=== PATIENT | female | born 1965 | race Caucasian/White ===

== ENCOUNTER 2017-12-25 12:50 | Emergency (ER) | payer MEDICAID ==
[~2017-12-25] VITALS: Ht 170.2 cm; Wt 86.4 kg
[~2017-12-25 12:50] MED LIST: ALBU6.7H INH; AZIT250T PO; CEPH-571 PO; DIAZ10TA PO; FLUT16SP10 NAS; GENOO OP; GUAI120015 PO; HYDR-4383 PO; IBUP-1984 PO; NAPR-996 PO; NO HOME MEDS
[2017-12-25 13:01] VITALS: BP 140/95
[2017-12-25] MEDS ORDERED: ibuprofen tablet 400 MG TABLET PO ONE (14:25)
== END 2017-12-25 15:13 | disposition home or self-care (01) ==
LOC: ER 12:50
DX: S63.8X2A Sprain of other part of left wrist and hand, initial encounter (principal); Z98.51 Tubal ligation status; Z98.890 Other specified postprocedural states; Z79.899 Other long term (current) drug therapy; W19.XXXA Unspecified fall, initial encounter; Y93.89 Activity, other specified; Y92.89 Other specified places as the place of occurrence of the external cause; Y99.9 Unspecified external cause status
CPT/HCPCS: 29125; 73130; 99284

== ENCOUNTER 2018-01-11 10:42 | Emergency (ER) | payer MEDICAID ==
[~2018-01-11] VITALS: Ht 170.2 cm; Wt 71.2 kg
[2018-01-11 10:51] VITALS: BP 149/85
== END 2018-01-11 11:33 | disposition home or self-care (01) ==
LOC: ER 10:42
DX: S01.01XD Laceration without foreign body of scalp, subsequent encounter (principal); Z48.02 Encounter for removal of sutures; Z79.899 Other long term (current) drug therapy; Z98.51 Tubal ligation status; Z98.890 Other specified postprocedural states; Z87.19 Personal history of other diseases of the digestive system; X58.XXXD Exposure to other specified factors, subsequent encounter
CPT/HCPCS: 99284

== ENCOUNTER 2019-05-06 04:11 | Emergency (ER) | payer MEDICAID, OTHER ==
[~2019-05-06] VITALS: Ht 170.2 cm; Wt 84.2 kg
[~2019-05-06 04:11] MED LIST changes: -ALBU6.7H INH; +ALBU6.7H9 INH
[2019-05-06] MEDS ORDERED: ipratropium/albuterol 3ml nebule NEB ONE (04:40)
[2019-05-06] MEDS ORDERED: azithromycin 250mg tablet PO ONE (04:40)
[2019-05-06] MEDS ORDERED: predniSONE 20 mg tablet PO ONE (04:40)
[2019-05-06] MEDS ORDERED: AZIT-63 PO (04:41)
[2019-05-06] MEDS ORDERED: PRED20TA PO (04:44)
[2019-05-06] MEDS ORDERED: ALBU8.5H8 INH (04:44)
[2019-05-06] MEDS ORDERED: LISI2.5T89 PO (04:48)
[2019-05-06] MEDS ORDERED: CARV3.122 PO (04:48)
[2019-05-06 05:32] VITALS: BP 172/64
== END 2019-05-06 05:36 | disposition home or self-care (01) ==
LOC: ER 04:13
DX: J44.1 Chronic obstructive pulmonary disease with (acute) exacerbation (principal); Z86.19 Personal history of other infectious and parasitic diseases; Z87.59 Personal history of other complications of pregnancy, childbirth and the puerperium; Z98.51 Tubal ligation status; Z79.2 Long term (current) use of antibiotics; Z79.899 Other long term (current) drug therapy
CPT/HCPCS: 94640; 99283; J7512; 94760

== ENCOUNTER 2019-08-13 09:14 | Emergency (ER) | payer MEDICAID, OTHER ==
[~2019-08-13] VITALS: Ht 170.2 cm; Wt 72.7 kg
[~2019-08-13 09:14] MED LIST changes: +ALBU8.5H8 INH; +CARV3.122 PO; +LISI2.5T89 PO
[2019-08-13 09:59] LABS: BASOPHILS % (AUTO) 0.5 % (0-1); EOSINOPHILS # (AUTO) 0.2 X10'3 (0-0.9); EOSINOPHILS % (AUTO) 2.4 % (0-6); HEMATOCRIT 40.2 % (35.0-45.0); MEAN CORPUSCULAR HEMOGLOBIN 28.8 PG (27.0-31.0); MEAN CORPUSCULAR HGB CONC 32.4 g/dL (33.0-36.5); MEAN CORPUSCULAR VOLUME 88.9 FL (78-98); MEAN PLATELET VOLUME 8.5 FL (7.4-10.4); MONOCYTES # (AUTO) 0.6 X10'3 (0-0.9); MONOCYTES % (AUTO) 8.2 % (2-12); NEUTROPHILS # (AUTO) 4.9 X10'3 (1.8-7.7); NEUTROPHILS % (AUTO) 62.9 % (42-75); PLATELET COUNT 182 X10'3 (140-440); RED BLOOD COUNT 4.52 X10'6 (4.20-5.60); RED CELL DISTRIBUTION WIDTH 15.3 % (11.5-14.5); WHITE BLOOD COUNT 7.8 X10'3 (4.5-11.0)
[2019-08-13 10:02] LABS: GLUCOSE 111 MG/DL (70-104)
[2019-08-13 10:06] LABS: ALANINE AMINOTRANSFERASE 25 U/L (12-78); ALBUMIN 3.3 G/DL (3.4-5.0); ALKALINE PHOSPHATASE 83 IU/L (46-116); ANION GAP 6 (8-16); ASPARTATE AMINO TRANSFERASE 23 U/L (10-37); BILIRUBIN,TOTAL 0.6 MG/DL (0.1-1.0); BLOOD UREA NITROGEN 6 MG/DL (7-18); BUN/CREATININE RATIO 7.8 (6.6-38.0); CALCIUM 8.6 MG/DL (8.5-10.1); CHLORIDE 104 MMOL/L (99-107); CREATININE 0.77 MG/DL (0.40-0.90); POTASSIUM 3.9 MMOL/L (3.5-5.1); SODIUM 138 MMOL/L (135-145); TOTAL CARBON DIOXIDE 28.2 MMOL/L (24-32); TOTAL PROTEIN 6.7 G/DL (6.4-8.2); eGFR 79 ML/MIN
[2019-08-13 10:40] VITALS: BP 156/107
== END 2019-08-13 15:30 | disposition left against medical advice (07) ==
LOC: ER 09:15
DX: I11.0 Hypertensive heart disease with heart failure (principal); I50.22 Chronic systolic (congestive) heart failure; F15.20 Other stimulant dependence, uncomplicated; F17.200 Nicotine dependence, unspecified, uncomplicated; Z91.14 Patient's other noncompliance with medication regimen; Z59.0 Homelessness; Z98.51 Tubal ligation status; Z98.890 Other specified postprocedural states; Z86.19 Personal history of other infectious and parasitic diseases; Z79.899 Other long term (current) drug therapy
CPT/HCPCS: 36415; 71045; 80053; 83880; 84484; 85025; 93005; 99285

== ENCOUNTER 2021-05-03 15:44 | Emergency (ER) | payer MEDICAID ==
[~2021-05-03] VITALS: Ht 167.6 cm; Wt 81.3 kg
[~2021-05-03 15:44] MED LIST changes: +ALBU8.5H17 INH; -ALBU8.5H8 INH
[2021-05-03 15:59] VITALS: BP 111/66
--- NOTE | 2021-05-03 17:56 | NUR ---
PT eloped 1730.
== END 2021-05-03 17:58 | disposition left against medical advice (07) ==
LOC: ER 15:45
DX: S09.90XA Unspecified injury of head, initial encounter (principal); Z53.21 Procedure and treatment not carried out due to patient leaving prior to being seen by health care provider; X58.XXXA Exposure to other specified factors, initial encounter; Y93.89 Activity, other specified; Y92.89 Other specified places as the place of occurrence of the external cause; Y99.8 Other external cause status

== ENCOUNTER 2022-01-12 03:40 | Inpatient (IN) | payer MEDICAID ==
[~2022-01-12] VITALS: Ht 167.6 cm; Wt 74.6 kg
[~2022-01-12 03:40] MED LIST changes: +ALBU6.7H14 INH; -ALBU6.7H9 INH
[2022-01-12 04:30] VITALS: BP 121/72
[2022-01-12 04:37] LABS: BASOPHILS % (AUTO) 0.6 % (0-1); EOSINOPHILS # (AUTO) 0.2 X10'3 (0-0.9); EOSINOPHILS % (AUTO) 2.8 % (0-6); HEMATOCRIT 37.5 % (35.0-45.0); HEMOGLOBIN 12.5 g/dl (12.0-16.0); LYMPHOCYTES # (AUTO) 1.7 X10'3 (1.1-4.8); LYMPHOCYTES % (AUTO) 28.9 % (21-51); MEAN CORPUSCULAR HGB CONC 33.3 g/dL (33.0-36.5); MEAN CORPUSCULAR VOLUME 89.9 FL (78-98); MEAN PLATELET VOLUME 8.7 FL (7.4-10.4); MONOCYTES # (AUTO) 0.5 X10'3 (0-0.9); MONOCYTES % (AUTO) 8.4 % (2-12); NEUTROPHILS # (AUTO) 3.5 X10'3 (1.8-7.7); NEUTROPHILS % (AUTO) 59.3 % (42-75); PLATELET COUNT 168 X10'3 (140-440); RED BLOOD COUNT 4.17 X10'6 (4.20-5.60); RED CELL DISTRIBUTION WIDTH 13.4 % (11.5-14.5)
[2022-01-12 04:39] LABS: ALANINE AMINOTRANSFERASE 32 U/L (12-78); ALBUMIN/GLOBULIN RATIO 0.9 (1.1-1.5); ALKALINE PHOSPHATASE 103 IU/L (46-116); ANION GAP 5 (8-16); ASPARTATE AMINO TRANSFERASE 24 U/L (10-37); BILIRUBIN,TOTAL 0.4 MG/DL (0.1-1.0); BLOOD UREA NITROGEN 16 MG/DL (7-18); BUN/CREATININE RATIO 22.5 (6.6-38.0); CALCIUM 8.9 MG/DL (8.5-10.1); CHLORIDE 106 MMOL/L (99-107); CREATININE 0.71 MG/DL (0.40-0.90); GLUCOSE 111 MG/DL (70-104); POTASSIUM 4.3 MMOL/L (3.5-5.1); SODIUM 139 MMOL/L (135-145); TOTAL CARBON DIOXIDE 28.2 MMOL/L (24-32); TOTAL PROTEIN 6.2 G/DL (6.4-8.2); eGFR 86 ML/MIN
[2022-01-12] MEDS ORDERED: nitroGLYCERIN 0.4mg/hour patch TD ONE (08:50)
[2022-01-12] MEDS ORDERED: carvedilol 6.25mg tablet PO SCH (08:50)
[2022-01-12] MEDS ORDERED: enoxaparin 100mg/ml syringe SUBCUT ONE (08:50)
[2022-01-12] MEDS ORDERED: aspirin 81mg tab.chew PO ONE (08:50)
[2022-01-12 09:24] LABS: ETHANOL < 0.010 GM/DL (0.0-0.010); MAGNESIUM 1.9 MG/DL (1.5-2.4)
[2022-01-12] MEDS ORDERED: morphine 2 MG/ML inj. syringe IV PRN ×2 (09:45)
[2022-01-12] MEDS ORDERED: ondansetron/PF 4mg/2ml inj IV PRN (09:45)
[2022-01-12] MEDS ORDERED: HYDROcodone/acetaminophen 5mg/325mg tablet PO PRN (09:45)
[2022-01-12] MEDS ORDERED: acetaminophen 325mg tablet PO PRN (09:45)
[2022-01-12] MEDS ORDERED: magnesium hydroxide 30ml (MOM) UD suspension PO PRN (09:45)
[2022-01-12] MEDS ORDERED: mag hydrox/Alum hydrox/simeth 30ml oral suspension PO PRN (09:45)
[2022-01-12 10:07] LABS: URINE AMPHETAMINE SCREEN POSITIVE (Neg); URINE BARBITUATE SCREEN NEGATIVE (Neg); URINE BENZODIAZEPINES SCREEN NEGATIVE (Neg); URINE CANNABINOID SCREEN NEGATIVE (Neg); URINE COCAINE SCREEN NEGATIVE (Neg); URINE METHADONE SCREEN NEGATIVE (Neg); URINE OPIATE SCREEN NEGATIVE (Neg); URINE PHENCYCLIDINE SCREEN NEGATIVE (Neg)
[2022-01-12] MEDS: lisinopril 10 MG tablet PO SCH (10:15)
[2022-01-12] MEDS ORDERED: furosemide 10 MG/1 ML 10ml inj IV STA (11:06)
[2022-01-12] MEDS ORDERED: POTA-82 PO (11:14)
[2022-01-12] MEDS ORDERED: CARV3.12 PO (11:19)
[2022-01-12] MEDS ORDERED: FURO-150 PO (11:19)
[2022-01-12] MEDS ORDERED: ALBU18HF2 INH (11:28)
[2022-01-12 12:05] LABS: APTT 28 SECONDS (22-32)
[2022-01-12] MEDS ORDERED: LISI2.5T14 PO (13:19)
--- NOTE | 2022-01-12 16:24 | NUR ---
Patient in room ED 4. I have received report from Jose KATZ from ER and had the opportunity to ask questions and assume patient care.
[2022-01-12 18:00] VITALS: BP 121/72
--- NOTE | 2022-01-12 18:00 | NUR ---
Cared for patient when she arrived on the unit. Patient is kind but tearful at times. States that she is concerned about her son. I encouraged her to take care of herself and get better so she can be there for her son. Patient was very thankful.
--- NOTE | 2022-01-12 18:49 | NUR ---
Problems reprioritized. Patient report given, questions answered & plan of care reviewed with Lorne KATZ.
[2022-01-12] MEDS: acetaminophen 325mg tablet PO PRN (19:31)
[2022-01-12] MEDS: furosemide 40mg/4ml inj IV SCH (19:35)
[2022-01-12] MEDS: docusate sod 100mg capsule PO SCH (19:35)
[2022-01-12] MEDS: carvedilol 6.25mg tablet PO SCH (19:35)
[2022-01-12 22:00] VITALS: BP 130/82
[2022-01-13 02:00] VITALS: BP 130/74
--- NOTE | 2022-01-13 04:18 | NUR ---
Pt complaint of SOB, SaO2 98 % RA, P 85, current does not have anti-anxiety meds order, deep RABAGO MD and got an order: Ativan 0.5 mg PO Q6H PRN for anxiety and SOB.
[2022-01-13] MEDS ORDERED: LORazepam 0.5 MG tablet PO PRN (04:25)
[2022-01-13] MEDS: HYDROcodone/acetaminophen 10/325mg tab PO PRN ×2 (05:34→23:27)
[2022-01-13 06:00] VITALS: BP 130/80
--- NOTE | 2022-01-13 06:10 | NUR ---
Patient in room PCU 3013. I have received report from Lorena KATZ and had the opportunity to ask questions and assume patient care.
[2022-01-13 06:35] LABS: BASOPHILS % (AUTO) 0.7 % (0-1); EOSINOPHILS # (AUTO) 0.2 X10'3 (0-0.9); EOSINOPHILS % (AUTO) 2.4 % (0-6); HEMOGLOBIN 12.6 g/dl (12.0-16.0); LYMPHOCYTES # (AUTO) 1.1 X10'3 (1.1-4.8); LYMPHOCYTES % (AUTO) 17.5 % (21-51); MEAN CORPUSCULAR HEMOGLOBIN 29.8 PG (27.0-31.0); MEAN CORPUSCULAR HGB CONC 33.3 g/dL (33.0-36.5); MEAN CORPUSCULAR VOLUME 89.6 FL (78-98); MONOCYTES # (AUTO) 0.6 X10'3 (0-0.9); MONOCYTES % (AUTO) 9.1 % (2-12); NEUTROPHILS # (AUTO) 4.5 X10'3 (1.8-7.7); NEUTROPHILS % (AUTO) 70.3 % (42-75); PLATELET COUNT 167 X10'3 (140-440); RED BLOOD COUNT 4.24 X10'6 (4.20-5.60); RED CELL DISTRIBUTION WIDTH 12.9 % (11.5-14.5); WHITE BLOOD COUNT 6.5 X10'3 (4.5-11.0)
[2022-01-13 06:54] LABS: ALBUMIN 2.9 G/DL (3.4-5.0); ANION GAP 6 (8-16); BLOOD UREA NITROGEN 14 MG/DL (7-18); BUN/CREATININE RATIO 20.3 (6.6-38.0); CALCIUM 8.5 MG/DL (8.5-10.1); CHLORIDE 104 MMOL/L (99-107); CHOL/HDL RATIO 2.7 (0.00-4.99); CHOLESTEROL 158 MG/DL (0-200); CREATININE 0.69 MG/DL (0.40-0.90); GLUCOSE 106 MG/DL (70-104); HDL CHOLESTEROL 58 MG/DL (35-60); LDL CHOLESTEROL 84 MG/DL (50-100); SODIUM 138 MMOL/L (135-145); TOTAL CARBON DIOXIDE 28.4 MMOL/L (24-32); TRIGLYCERIDES 73 MG/DL (20-135); eGFR 89 ML/MIN
[2022-01-13] MEDS: carvedilol 6.25mg tablet PO SCH ×2 (07:48→20:16)
[2022-01-13] MEDS: lisinopril 10 MG tablet PO SCH (07:48)
[2022-01-13] MEDS: docusate sod 100mg capsule PO SCH ×2 (07:49→20:16)
[2022-01-13] MEDS: furosemide 40mg/4ml inj IV SCH ×2 (08:11→20:16)
--- NOTE | 2022-01-13 13:48 | NUR ---
AGREE WITH ANALYST GEOCHEMICAL PROSPECTING CHARTING
[2022-01-13 13:58] VITALS: BP 116/76
[2022-01-13] MEDS ORDERED: nicotine 21mg patch - 24 hr TD SCH (15:00)
[2022-01-13] MEDS: acetaminophen 325mg tablet PO PRN (17:54)
[2022-01-13 18:00] VITALS: BP 124/62
--- NOTE | 2022-01-13 18:13 | NUR ---
cared for patient today. Patient is a pleasant lady. Patient was given a warm wash cloth to wash face, patient also took a shower today.
--- NOTE | 2022-01-13 18:14 | NUR ---
Problems reprioritized. Patient report given, questions answered & plan of care reviewed with Lorne KATZ.
[2022-01-13 22:00] VITALS: BP 121/76
[2022-01-14 02:00] VITALS: BP 115/69
[2022-01-14 06:00] VITALS: BP 123/73
--- NOTE | 2022-01-14 06:47 | NUR ---
Patient in room PCU 3013. I have received report from Lorne and had the opportunity to ask questions and assume patient care.
[2022-01-14] MEDS: furosemide 40mg/4ml inj IV SCH (08:00)
[2022-01-14] MEDS ORDERED: LISI10TA27 PO (08:44)
[2022-01-14] MEDS ORDERED: FURO40TA4 PO (08:44)
[2022-01-14] MEDS ORDERED: CARV6.253 PO (08:44)
[2022-01-14 09:24] LABS: BASOPHILS % (AUTO) 0.6 % (0-1); EOSINOPHILS # (AUTO) 0.1 X10'3 (0-0.9); EOSINOPHILS % (AUTO) 2.3 % (0-6); HEMATOCRIT 42.7 % (35.0-45.0); HEMOGLOBIN 14.4 g/dl (12.0-16.0); LYMPHOCYTES # (AUTO) 1.5 X10'3 (1.1-4.8); LYMPHOCYTES % (AUTO) 25.1 % (21-51); MEAN CORPUSCULAR HEMOGLOBIN 30.1 PG (27.0-31.0); MEAN CORPUSCULAR HGB CONC 33.8 g/dL (33.0-36.5); MEAN PLATELET VOLUME 8.8 FL (7.4-10.4); MONOCYTES # (AUTO) 0.5 X10'3 (0-0.9); MONOCYTES % (AUTO) 8.2 % (2-12); NEUTROPHILS # (AUTO) 3.7 X10'3 (1.8-7.7); NEUTROPHILS % (AUTO) 63.8 % (42-75); PLATELET COUNT 197 X10'3 (140-440); RED CELL DISTRIBUTION WIDTH 13.4 % (11.5-14.5); WHITE BLOOD COUNT 5.8 X10'3 (4.5-11.0)
[2022-01-14] MEDS: carvedilol 6.25mg tablet PO SCH (09:36)
[2022-01-14 09:38] LABS: ALBUMIN 3.1 G/DL (3.4-5.0); ANION GAP 7 (8-16); BLOOD UREA NITROGEN 19 MG/DL (7-18); BUN/CREATININE RATIO 25.7 (6.6-38.0); CALCIUM 9.2 MG/DL (8.5-10.1); CHLORIDE 101 MMOL/L (99-107); CREATININE 0.74 MG/DL (0.40-0.90); GLUCOSE 120 MG/DL (70-104); POTASSIUM 4.2 MMOL/L (3.5-5.1); SODIUM 139 MMOL/L (135-145); TOTAL CARBON DIOXIDE 31.1 MMOL/L (24-32); eGFR 82 ML/MIN
[2022-01-14 09:39] VITALS: BP_SYST 123
[2022-01-14] MEDS: docusate sod 100mg capsule PO SCH (09:39)
[2022-01-14] MEDS: lisinopril 10 MG tablet PO SCH (09:39)
--- NOTE | 2022-01-14 10:50 | NUR ---
Discharge orders were reviewed with pt. Pt verbalized understanding. Pt is A & O x 4. Pt expressed a readiness to discharge home. Pt was able to dress herself and was wheeled downstairs to be driven home by family/friend.
== END 2022-01-14 10:50 | disposition home or self-care (01) | DRG 194 ==
LOC: ER 03:40 → ED HOLD 09:50 → EDBEDREQ 15:06 → PCU 3S 16:43
PROVIDERS: ADMIT Internal Medicine; ATTEND Internal Medicine
DX: I11.0 Hypertensive heart disease with heart failure (principal); I21.4 Non-ST elevation (NSTEMI) myocardial infarction; I50.23 Acute on chronic systolic (congestive) heart failure; F15.10 Other stimulant abuse, uncomplicated; B19.20 Unspecified viral hepatitis C without hepatic coma; F17.210 Nicotine dependence, cigarettes, uncomplicated; Z79.899 Other long term (current) drug therapy; Z98.891 History of uterine scar from previous surgery; Z98.51 Tubal ligation status; Z71.6 Tobacco abuse counseling; Z71.51 Drug abuse counseling and surveillance of drug abuser
CPT/HCPCS: 36415; 71045; 80048; 80053; 80061; 80305; 80320; 83735; 83880; 84443; 84484; 85025; 85610; 85730; 87081; 93005; 93306; 99285; G0378; J1650; J1940; J2405

== ENCOUNTER → 2024-03-01 | Outpatient (CLI) | payer MEDICAID ==
[~2024-03-01] MED LIST changes: +ALBU18HF2 INH; -ALBU6.7H14 INH; -ALBU8.5H17 INH; -AZIT250T PO; -CARV3.122 PO; +CARV6.253 PO; -CEPH-571 PO; -DIAZ10TA PO; -FLUT16SP10 NAS; +FURO40TA4 PO; -GENOO OP; -GUAI120015 PO; -HYDR-4383 PO; -IBUP-1984 PO; +LISI10TA27 PO; -LISI2.5T89 PO; -NAPR-996 PO; -NO HOME MEDS; +POTA-366 PO
== END | disposition home or self-care (01) ==
LOC: CARD DIAG 15:31
PROVIDERS: ATTEND Family Medicine
DX: I08.0 Rheumatic disorders of both mitral and aortic valves (principal); I50.22 Chronic systolic (congestive) heart failure
CPT/HCPCS: 93306

== ENCOUNTER 2024-07-02 15:50 | Inpatient (IN) | payer MEDICAID ==
[~2024-07-02] VITALS: Ht 167.6 cm; Wt 98.3 kg
--- NOTE | 2024-07-02 16:02 | ELECTROCARDIOGRAPH REPORT ---
[facility] Test Date: 2024-07-02 Test Time: 16:01:04 Pat Name: MOSES RUBALCAVA Department: [facility]-ER Patient ID: [facility]-[id number] Room: ED 3 Gender: F Auto Service Advisor: : 1965 Requested By: CHANELLE LANCE Order Number: [id number] Reading MD: Dr. Chai Emerson Measurements Intervals [place] Rate: 114 P: 48 ME: 168 QRS: -3 QRSD: 100 T: 92 QT: 338 QTc: 466 Interpretive Statements Sinus tachycardia Probable left atrial enlargement LVH with secondary repolarization abnormality Electronically Signed On 07-02-2024 18:39:[address] Chai Emerson Please click the below link to view image of tracing.
[2024-07-02 16:22] LABS: BASOPHILS % (AUTO) 0.7 % (0-1); EOSINOPHILS # (AUTO) 0.6 X10'3 (0-0.9); EOSINOPHILS % (AUTO) 9.2 % (0-6); HEMATOCRIT 39.4 % (35.0-45.0); HEMOGLOBIN 13.2 g/dl (12.0-16.0); LYMPHOCYTES % (AUTO) 31.9 % (21-51); MEAN CORPUSCULAR HEMOGLOBIN 28.7 PG (27.0-31.0); MEAN CORPUSCULAR HGB CONC 33.5 g/dL (33.0-36.5); MEAN CORPUSCULAR VOLUME 85.9 FL (78-98); MEAN PLATELET VOLUME 8.2 FL (7.4-10.4); MONOCYTES # (AUTO) 0.6 X10'3 (0-0.9); NEUTROPHILS # (AUTO) 3.1 X10'3 (1.8-7.7); NEUTROPHILS % (AUTO) 49.2 % (42-75); PLATELET COUNT 195 X10'3 (140-440); RED BLOOD COUNT 4.59 X10'6 (4.20-5.60); RED CELL DISTRIBUTION WIDTH 13.1 % (11.5-14.5); WHITE BLOOD COUNT 6.3 X10'3 (4.5-11.0)
--- NOTE | 2024-07-02 16:22 | RADIOLOGY REPORT ---
CHEST RADIOGRAPH Indication: CP Technique: Single frontal view of the chest was obtained Comparison: CHEST,SINGLE VIEW on DOS: 01/12/22, CHEST,SINGLE VIEW on DOS: 08/13/19 FINDINGS: Lines and Tubes: None Lungs: No focal consolidation. Pleura: No effusion. No pneumothorax. Cardiomediastinal contours: Unremarkable Bones: No acute osseous abnormality. IMPRESSION: 1. No acute cardiopulmonary disease.
[2024-07-02 16:39] LABS: ALANINE AMINOTRANSFERASE 21 U/L (12-78); ALBUMIN 3.5 G/DL (3.4-5.0); ALKALINE PHOSPHATASE 98 IU/L (46-116); ANION GAP 6 (8-16); ASPARTATE AMINO TRANSFERASE 14 U/L (10-37); BILIRUBIN,TOTAL 0.4 MG/DL (0.1-1.0); BLOOD UREA NITROGEN 17 MG/DL (7-18); BUN/CREATININE RATIO 26.6 (10.0-20.0); CALCIUM 8.8 MG/DL (8.5-10.1); CHLORIDE 106 MMOL/L (99-107); CREATININE 0.64 MG/DL (0.40-0.90); GLUCOSE 109 MG/DL (70-104); POTASSIUM 3.8 MMOL/L (3.5-5.1); SODIUM 141 MMOL/L (135-145); TOTAL CARBON DIOXIDE 29.2 MMOL/L (24-32); TOTAL PROTEIN 7.1 G/DL (6.4-8.2); eCRCL 92 ML/MIN; eGFR > 90 ML/MIN
[2024-07-02 16:46] LABS: PRO BRAIN NATRIURETIC PEPTIDE 351 PG/ML (0-125)
--- NOTE | 2024-07-02 17:11 | Physician Documentation ---
History of Present Illness ~ Chief Complaint: Shortness of Breath Stated Complaint: DIFFICULTY BREATHING Time Seen by MD: 16:46 OK to notify your PCP?: Yes [facility] Mode of Arrival: Ambulatory HPI 58 years old female patient who is homeless FOR five years duration and also history of smoking and history of meth usage (last use was yesterday) with a history of congestive heart failure with reduced systolic function (ejection fraction about 35%) came to the emergency room for progressive shortness a breath for the last three weeks. She has been to the [facility] and she was treated for COPD exacerbation and discharged. Her medication compliance is sporadic. She is still smoking. The patient does not have angina like pain but she does have pleuritic chest pain particularly upon coughing. Medication Reconciliation Allergies: Coded Allergies: No Known Allergies (Unverified , 07/02/24) Scheduled Atorvastatin Calcium (Atorvastatin Calcium), 1 TAB PO DAILY, (Reported) Carvedilol (Coreg), 1 TAB PO Q12H, (Reported) Lisinopril (Lisinopril), 1 TAB PO DAILY, (Reported) Spironolactone (Spironolactone), 1 TAB PO DAILY, (Reported) Scheduled PRN Albuterol Sulfate (Ventolin Hfa), 1 PUFFS INH every 4 to 6 hours PRN for SOB or wheezing, (Reported) Discontinued Medications Carvedilol (Carvedilol), 6.25 MG PO BID Discontinued Reason: patient no longer taking Furosemide (Furosemide), 1 TABLET PO BID Discontinued Reason: patient no longer taking Lisinopril (Lisinopril), 10 MG PO DAILY Discontinued Reason: patient no longer taking Potassium Chloride (Potassium Chloride), 1 TAB PO BID, (Reported) Discontinued Reason: patient no longer taking Past Medical History Past Medical History: Congestive Heart Failure, Hypertension, Hepatitis C Past Surgical History: , tubal ligation Alcohol Use: None Drug Use: methamphetamine Lives with: Family Lives In: Home Occupation: employed Review of Systems ROS As stated above in the HPI, otherwise all systems are reviewed and negative. Physical Exam Vital Signs: Temperature: 98.3, Heart Rate: 115, Respiratory Rate: 18, BP: 159/109, Pulse Oximetry: 97, Weight: 100.000 Physical Exam Reviewed vital signs and they are well within normal range except for tachycardia. Const: In [id number] respiratory distress Head: Atraumatic Eyes: Normal Conjunctiva ENT: Normal External Ears, Nose and Mouth. Moist mucous membranes Neck: Full range of motion. No meningismus Resp: Diminished breath sounds and expiratory wheezes bilaterally. [id number] increased work of breathing Cardio: Regular rate and rhythm, no murmurs. Skin well perfused, heart rate is 1 one two per minute Abd: Soft, non-tender, non-distended. Normal bowel sounds. No rebound or guarding Skin: No petechiae or rashes. Warm and dry Back: No midline or flank tenderness Ext: No cyanosis, trace pedal edema Neuro: Awake and alert Psych: Normal Mood and Affect Procedures Additional Procedures Procedure Note Twelve lead EKG done at 16:01 hours shows sinus tachycardia at a rate of 114. Left axis deviation. Left atrial enlargement. LVH by voltage criteria. Normal intervals. No acute ischemic changes. Progress Results/Orders Results/Orders Orders - CHANELLE LANCE MD Chest,Single View (07/02/24 16:06) Monitor (07/02/24 15:57) Saline Lock (07/02/24 15:57) Oxygen (07/02/24 15:57) Electrocardiogram (07/02/24 15:57) Svn Treatment (07/02/24 17:04) Page Hospitalist (07/02/24 17:12) Completed Orders - CHANELLE LANCE MD Chest,Single View (07/02/24 16:06) Cbc/Diff (07/02/24 15:57) PBNP (07/02/24 15:57) Electrocardiogram (07/02/24 15:57) CMP (07/02/24 15:57) Hs Troponin I W Calculations (07/02/24 15:57) Ipratropium/Albuterol Nebule (Ipratrop/A (07/02/24 17:05) Vital Signs 07/02/24 07/02/24 07/02/24 07/02/24 15:54 17:22 17:25 17:27 Temp 98.3 Pulse 115 107 114 107 Resp 18 19 22 20 B/P (MAP) 159/109 159/103 (121) Pulse Ox 97 98 98 97 O2 Delivery Room Air* Room Air* O2 Flow Rate 0 0 0 FiO2 21 21 Laboratory Tests Test 07/02/24 16:04 07/02/24 16:05 D-Dimer 0.56 H D-Dimer Comment White Blood Count 6.3 Red Blood Count 4.59 Hemoglobin 13.2 Hematocrit 39.4 Mean Corpuscular Volume 85.9 Mean Corpuscular Hemoglobin 28.7 Mean Corpuscular Hemoglobin Concent 33.5 Red Cell Distribution Width 13.1 Platelet Count 195 Mean Platelet Volume 8.2 Neutrophils (%) (Auto) 49.2 Lymphocytes (%) (Auto) 31.9 Monocytes (%) (Auto) 9.0 Eosinophils (%) (Auto) 9.2 H Basophils (%) (Auto) 0.7 Neutrophils # (Auto) 3.1 Lymphocytes # (Auto) 2.0 Monocytes # (Auto) 0.6 Eosinophils # (Auto) 0.6 Basophils # (Auto) 0.0 CBC Comment Sodium Level 141 Potassium Level 3.8 Chloride Level 106 Carbon Dioxide Level 29.2 Anion Gap 6 L Blood Urea Nitrogen 17 Creatinine 0.64 Estimated GFR/1.73 m2 > 90 BUN/Creatinine Ratio 26.6 H Glucose Level 109 H Calcium Level 8.8 Total Bilirubin 0.4 Aspartate Amino Transf (AST/SGOT) 14 Alanine Aminotransferase (ALT/SGPT) 21 Alkaline Phosphatase 98 Troponin I High Sensitivity 97 *H Pro-B-Type Natriuretic Peptide 351 H Total Protein 7.1 Albumin 3.5 Globulin 3.6 Albumin/Globulin Ratio 1.0 L Procalcitonin < 0.05 Chemistry Comments Medical Decision Making Findings During the physical examination, the findings suggestive of acute life- threatening condition such as JVD, tracheal deviation, acidotic breathing, noisy stridorous breath sounds, pulses paradoxus, muffled heart sounds, unequal breath sounds, abdominal rigidity and rebound tenderness, focal neurological deficits, cool clammy skin, severe hypotension, severe tachycardia or bradycardia are absent. Patient has shortness a breath and it probably could be a combination of COPD exacerbation and CHF together with meth usage. Her CBC showed WBC 6.3 and H and H13.2 and 39.4 and platelets 195. Sodium 141 potassium 3.8 chloride 106 bicarb 29.2 BUN 17 creatinine 0.64. Pro BNP is 351 and troponin is 97. In her historical labs troponin 97 is probably the lowest. Radiology reported that chest x-ray does not reveal any acute process. When I look at the chest x-ray I think she may have some prominent vascular marking. PATIENT WILL BE ADMITTED FOR ACUTE EXACERBATION OF CHF/COPD. DISCLAIMER INADVERTENT SPELLING AND GRAMMATICAL ERRORS,INADVERTENT CUSTOMER OPERATIONS MANAGER ERRORS,SYNTAX ERRORS, GRAMMATICAL ERRORS, AND SPELLING ERRORS ARE LIKELY DUE TO EMR/DICTATION SOFTWARE USE AND DO NOT REFLECT ON THE OVERALL QUALITY OF PATIENT CARE. NOTE THAT THE ELECTRONIC TIME RECORDED ON THIS NOTE DOES NOT NECESSARILY REFLECT THE ACTUAL TIME OF THE PATIENT ENCOUNTER. Departure Disposition: 09 ADMITTED INPATIENT Impression: Primary Impression: Acute exacerbation of chronic obstructive airways disease Additional Impression: Acute on chronic systolic heart failure Referrals: NO PRIMARY CARE PROVIDER (PCP) Signature Scribe Signature: x Attestation: CHANELLE Frankel MD July 02, 2024 17:11
[2024-07-02] MEDS: ipratropium/albuterol 3ml nebule NEB ONE (17:18)
[2024-07-02 17:22] VITALS: PULSE 107; RESP 19; O2SAT 98
[2024-07-02 17:27] VITALS: PULSE 107; RESP 20; O2SAT 97
[2024-07-02] MEDS ORDERED: potassium Cl 40MEQ/1/2NS 520ml 520 ML IV PRN (17:30)
[2024-07-02] MEDS ORDERED: HYDROcodone/acetaminophen 5mg/325mg tablet PO PRN (17:30)
[2024-07-02] MEDS ORDERED: acetaminophen 325mg tablet PO PRN ×2 (17:30)
[2024-07-02] MEDS ORDERED: magnesium sulf-water 2g/50mL 50 ML IV PRN (17:30)
[2024-07-02] MEDS ORDERED: mag hydrox/Alum hydrox/simeth 30ml oral suspension PO PRN (17:30)
[2024-07-02] MEDS ORDERED: potassium Cl 20 mEq SR tablet PO PRN (17:30)
[2024-07-02] MEDS ORDERED: magnesium sulf-water 4G/100mL 100 ML IV PRN (17:30)
[2024-07-02] MEDS ORDERED: HYDROcodone/acetaminophen 10/325mg tab PO PRN (17:30)
[2024-07-02] MEDS ORDERED: ondansetron/PF 4mg/2ml inj IV PRN (17:30)
[2024-07-02] MEDS ORDERED: magnesium hydroxide 30ml (MOM) UD suspension PO PRN (17:30)
[2024-07-02] MEDS ORDERED: iohexol 350MG/ML 100ml bottle IV ONE (17:35)
[2024-07-02] MEDS ORDERED: hydrALAZINE 20mg/ml inj. IV PRN (17:35)
[2024-07-02] MEDS: EMPAGLIFLOZIN 10 MG TABLET PO ONE (17:40)
[2024-07-02 17:50] LABS: D-DIMER 0.56 MG/L FEU (0-0.50)
--- NOTE | 2024-07-02 18:14 | RADIOLOGY REPORT ---
INDICATION: sob, tachycardia COMPARISON: None TECHNIQUE: Multidetector CTA of the chest was performed of the chest with 100 cc of intravenous contr ast. PULMONARY ANGIOGRAPHY PROTOCOL was utilized using a bolus-tracking technique centered on the mita n pulmonary artery. Axial, coronal and sagittal multiplanar and MIP reformats were performed. Radiation Dose Information: CT Dose: CTDI volume is 38.34 mGy. Dose-length product is 901.91 mGy*cm The dose indicators for CT are the volume Computed Tomography (CT) Dose Index (CTDIvol) and the Dose Length Product (DLP), and are measured in units of mGy and mGy-cm, respectively. These indicators are not patient dose, but values generated from the CT scanner acquisition factors. The report includes radiation exposure data for exposures received during this examination. Findings: Pulmonary artery: Normal caliber of the pulmonary artery. No large central or large segmental pulmo nary embolism. Lower neck: Normal thyroid. Lungs: No focal consolidation, pulmonary mass, or suspicious pulmonary nodule. Heart/Vascular Structures: Normal heart size. Normal caliber and enhancement of the aorta. Lymph Nodes: No adenopathy Pleura: No pleural effusion or significant pneumothorax. Musculoskeletal: No acute osseous abnormality. Upper abdomen: Limited portions of the upper abdomen are unremarkable. IMPRESSION: 1. No pulmonary embolism. 2. No pulmonary artery hypertension. 3. No pulmonary airspace disease or pleural effusions.
--- NOTE | 2024-07-02 18:32 | HISTORY AND PHYSICAL ---
History & Physical Providers to CC ~ History of Present Illness Reason for Admit\Complaint: SIRS, infective bronchitis, type II MS, acute copd exacerbation History of Present Illness Alisson Harmon is a 58-year-old female with a past medical history of systolic heart failure, methamphetamine abuse, methamphetamine-induced cardiomyopathy, medication noncompliance, chronic tobacco abuse, COPD who presented to the ED with chief complaint of progressively worsening shortness of breaths with associated symptoms of productive cough, pleuritic chest pain, intermittent fever and chills x 3 weeks. Patient denies prior MS/CAD, CVA, cardiac arrhythmia, DVT/PE, or GIB. Patient denies palpitations, abdominal pain, n/v/d. Patient is to be admitted for further workups and treatment. Allergies: Coded Allergies: No Known Allergies (Unverified , 07/02/24) Home Medications Home Medications Active Furosemide 40 Mg Tablet 1 Tablet PO BID Lisinopril 10 Mg Tablet 10 Mg PO DAILY Carvedilol 6.25 Mg Tablet 6.25 Mg PO BID Reported Ventolin Hfa (Albuterol Sulfate) 18 Gm Hfa.aer.ad 1 Puffs INH EVERY 4 TO 6 HOURS PRN Potassium Chloride 20 Meq Tablet.er 1 Tab PO BID Past Medical History Past Medical History COPD Systolic heart failure Methamphetamine abuse Hyperlipidemia Hypertension Tobacco abuse Past Surgical History Surgical History Comment Tubal ligation Past Social History Social History Comment Alcohol: Denies Tobacco: Current smoker, 15 pack year history Illicit drug use: Methamphetamine abuse, 40 years Living situation: Homelessness ROS ROS Other than positives in HPI, all 14 review of systems are negative Exam Vitals: Vital Signs Date Time Temp Pulse Resp B/P (MAP) Pulse Ox O2 Delivery O2 Flow Rate FiO2 07/02/24 18:16 106 17 155/95 (115) 97 0 07/02/24 17:27 Room Air* 21 07/02/24 15:54 98.3 General: Generalized weakness, A&Ox 3, NAD HEENT: Normocephalic, PERRLA Neck: Supple, trachea midline, no JVD Chest: Diminished b/l lung sounds Cardiovascular: RRR, S1&S2 Abdomen: Soft and nontender Extremities: Mild edema b/l lower extremities Central Nervous System: CN II-XII intact, no focal deficits Musculoskeletal: No paraspinal muscle tenderness, no muscle spasm Skin: Scattered scabbed wounds in b/l lower extremities Diagnostic Data Last Recorded Lab Results: 07/02/24 1605 07/02/24 1605 Diagnostic Data: Laboratory Tests Test 07/02/24 16:04 D-Dimer 0.56 MG/L FEU (0-0.50) H D-Dimer Comment Additional Plan # Suspected infective bronchitis, 3 weeks # Acute COPD exacerbation # SIRS # Type II MS 04/04 SIRS -CXR, UA, CTA chest negative -start empirical abx given comorbidities, IVF, supportive care, follow respiratory culture # Acute decompensated systolic heart failure, LVEF 35-40% (03/01/24) # Methamphetamine-induced cardiomyopathy # Methamphetamine abuse # Hypertension -EKG sinus tachycardia at 114bpm, no ischemic changes, elevated d-dimer; CTA negative PE unremarkable, CXR negative, downtrending troponins; UDS positive amphetamine -GDMT including metoprolol tart -follow TTE, venous US b/l LE # Tobacco abuse # Nicotine dependence -nicotine patch, prn bronchodilator # Class II obesity # HLD -follow lipid panel, pending med rec DVT/VTE Prophylaxis: heparin Code Status: DNR/DNI I spent a total of 35 minutes discussing Advanced Care Planning measures with the patient. Advance care planning: Discussed with patient the importance of advance care planning in case of emergent situation. We discussed various resuscitative measures/ ACP with the patient at the time of admission. Patient voiced understanding and patient has decided on DNR/DNI status. Date of Service: July 02, 2024 Billing Provider: AISHA DHAILWAL Common Visit Codes: 32461-[id number] INP/OBS CARE (HIGH) Secondary Visit Codes: [id number] CARE PLAN 30 MINUTES AISHA DHALIWAL July 02, 2024 18:32
[2024-07-02] MEDS ORDERED: metoprolol tartrate 1mg/ml inj IV PRN (18:40)
[2024-07-02] MEDS: CefTRIAXone/D5W-Rocephin 1gm 50 ML IV ONE (19:22)
[2024-07-02] MEDS: azithromycin/NS 500mg/250ml 250 ML IV ONE (19:25)
[2024-07-02] MEDS: nicotine 14mg patch - 24hr TD ONE (19:26)
[2024-07-02] MEDS: metoprolol tartrate 1mg/ml inj IV ONE (19:27)
[2024-07-02] MEDS: losartan 25mg tablet PO ONE (19:42)
[2024-07-02] MEDS: docusate sod 100mg capsule PO SCH (19:58)
[2024-07-02] MEDS: K and/or MAG REPLACEMENT MC SCH (19:59)
[2024-07-02] MEDS: furosemide 20 MG/2 ML vial IV SCH (20:01)
[2024-07-02 20:16] LABS: BILIRUBIN,URINE NEGATIVE (Neg); CLARITY,URINE CLEAR (Clear); COLOR,URINE YELLOW (Yellow); GLUCOSE, URINE NEGATIVE (Neg); KETONES,URINE NEGATIVE (Neg); LEUKOCYTE ESTERASE ,URINE NEGATIVE (Neg); NITRITES, URINE NEGATIVE (Neg); OCCULT BLOOD,URINE NEGATIVE (Neg); PH,URINE 5.5 (4.8-8.0); PROTEIN,URINE NEGATIVE (Neg); UROBILINOGEN,URINE 0.2 E.U/dL (0.2-1.0)
[2024-07-02 20:24] LABS: UA COLLECTION TYPE CLN CATCH MIDSTREAM
[2024-07-02 20:35] LABS: URINE AMPHETAMINE SCREEN POSITIVE (Neg); URINE BARBITUATE SCREEN NEGATIVE (Neg); URINE BENZODIAZEPINES SCREEN NEGATIVE (Neg); URINE CANNABINOID SCREEN NEGATIVE (Neg); URINE COCAINE SCREEN NEGATIVE (Neg); URINE METHADONE SCREEN NEGATIVE (Neg); URINE OPIATE SCREEN NEGATIVE (Neg); URINE PHENCYCLIDINE SCREEN NEGATIVE (Neg)
[2024-07-02] MEDS ORDERED: normal saline 1000ml 1,000 ML IV SCH (21:05)
[2024-07-02] MEDS: benzonatate 100mg capsule PO ONE (21:53)
[2024-07-02] MEDS: normal saline 1000ml 1,000 ML IV SCH (21:54)
[2024-07-02] MEDS ORDERED: SPIR25TA5 PO (22:39)
[2024-07-02] MEDS ORDERED: ATOR10TA70 PO (22:40)
[2024-07-02] MEDS ORDERED: CARV-49 PO (22:40)
[2024-07-02] MEDS ORDERED: LISI20TA28 PO (22:40)
[2024-07-02 23:15] VITALS: BP 149/61; PULSE 89; RESP 18; TEMP 97.5; O2SAT 97
[2024-07-03] VITALS (13 sets, daily range): BP systolic 121–145; BP diastolic 70–92; PULSE 77–118; RESP 17–27; TEMP 97.1–98.5; O2SAT 91–98
[2024-07-03] MEDS: heparin, porcine 5000 units/ml vial SQ SCH (01:26)
[2024-07-03] MEDS: diphenhydrAMINE 25mg capsule PO ONE (01:30)
[2024-07-03] MEDS: ipratropium/albuterol 3ml nebule NEB PRN (01:48)
[2024-07-03 06:58] LABS: BASOPHILS % (AUTO) 0.7 % (0-1); EOSINOPHILS # (AUTO) 0.4 X10'3 (0-0.9); EOSINOPHILS % (AUTO) 7.7 % (0-6); HEMATOCRIT 36.5 % (35.0-45.0); HEMOGLOBIN 12.4 g/dl (12.0-16.0); LYMPHOCYTES # (AUTO) 1.9 X10'3 (1.1-4.8); LYMPHOCYTES % (AUTO) 33.6 % (21-51); MEAN CORPUSCULAR HEMOGLOBIN 29.1 PG (27.0-31.0); MEAN CORPUSCULAR VOLUME 85.6 FL (78-98); MEAN PLATELET VOLUME 8.3 FL (7.4-10.4); MONOCYTES # (AUTO) 0.5 X10'3 (0-0.9); MONOCYTES % (AUTO) 8.1 % (2-12); NEUTROPHILS # (AUTO) 2.8 X10'3 (1.8-7.7); NEUTROPHILS % (AUTO) 49.9 % (42-75); PLATELET COUNT 172 X10'3 (140-440); RED BLOOD COUNT 4.26 X10'6 (4.20-5.60); RED CELL DISTRIBUTION WIDTH 13.3 % (11.5-14.5); WHITE BLOOD COUNT 5.7 X10'3 (4.5-11.0)
[2024-07-03 07:11] LABS: ALANINE AMINOTRANSFERASE 20 U/L (12-78); ALBUMIN 3.1 G/DL (3.4-5.0); ALBUMIN/GLOBULIN RATIO 0.9 (1.1-1.5); ALKALINE PHOSPHATASE 79 IU/L (46-116); ANION GAP 4 (8-16); ASPARTATE AMINO TRANSFERASE 16 U/L (10-37); BILIRUBIN,TOTAL 0.4 MG/DL (0.1-1.0); BLOOD UREA NITROGEN 14 MG/DL (7-18); BUN/CREATININE RATIO 24.1 (10.0-20.0); CALCIUM 8.3 MG/DL (8.5-10.1); CHLORIDE 110 MMOL/L (99-107); CHOL/HDL RATIO 2.2 (0.00-4.99); CHOLESTEROL 161 MG/DL (0-200); CREATININE 0.58 MG/DL (0.40-0.90); GLUCOSE 90 MG/DL (70-104); HDL CHOLESTEROL 72 MG/DL (35-60); LDL CHOLESTEROL 75 MG/DL (50-100); MAGNESIUM 2.1 MG/DL (1.5-2.4); POTASSIUM 3.4 MMOL/L (3.5-5.1); SODIUM 142 MMOL/L (135-145); TOTAL CARBON DIOXIDE 27.8 MMOL/L (24-32); TOTAL PROTEIN 6.4 G/DL (6.4-8.2); TRIGLYCERIDES 46 MG/DL (20-135); eCRCL 101 ML/MIN; eGFR > 90 ML/MIN
[2024-07-03] MEDS: EMPAGLIFLOZIN 10 MG TABLET PO SCH (07:47)
[2024-07-03] MEDS: losartan 25mg tablet PO SCH (07:48)
[2024-07-03] MEDS: metoprolol tartrate 25mg tablet PO SCH (07:48)
[2024-07-03] MEDS: CefTRIAXone/D5W-Rocephin 1gm 50 ML IV SCH (07:50)
[2024-07-03] MEDS: nicotine 14mg patch - 24hr TD SCH (07:50)
[2024-07-03] MEDS ORDERED: metoprolol succinate 25mg (24-HOUR) SR. Tablet PO SCH (08:00)
[2024-07-03] MEDS: ipratropium/albuterol 3ml nebule NEB SCH (09:10)
[2024-07-03] MEDS ORDERED: methylPREDNISolone sod succ 125mg/2ml vial IV ONE (09:10)
[2024-07-03] MEDS: azithromycin/NS 500mg/250ml 250 ML IV SCH (09:16)
[2024-07-03] MEDS: potassium Cl 20 mEq SR tablet PO PRN (09:16)
[2024-07-03] MEDS: methylPREDNISolone sod succ/PF 40mg inj. IV ONE (09:27)
--- NOTE | 2024-07-03 10:44 | VASCULAR REPORT ---
CLINICAL HISTORY: Bilateral leg swelling TECHNIQUE: Color and duplex doppler imaging of the bilateral lower extremity veins was performed. Ves latoya compression if possible was also performed. WID: COMPARISON: None FINDINGS: Right Lower Extremity: Right common femoral vein: Normal compressibility and flow. Right femoral vein: Normal compressibility and flow. Right popliteal vein: Normal compressibility and flow. Proximal calf veins are normally compressible. Left Lower Extremity: Left common femoral vein: Normal compressibility and flow. Left femoral vein: Normal compressibility and flow. Left popliteal vein: Normal compressibility and flow. Proximal calf veins are normally compressible. IMPRESSION: NO SONOGRAPHIC EVIDENCE FOR DEEP VENOUS THROMBOSIS IN THE BILATERAL LOWER EXTREMITY VEINS.
--- NOTE | 2024-07-03 12:05 | PROGRESS NOTE ---
Daily Progress Note Providers to CC ~ Antibiotic Timeout Antibiotic Ordered?: Yes Subjective No acute events overnight. Patient examined at bedside. No new complaints, not in acute distress. Patient denies chest pain, palpitations, abdominal pain, n/v/d. Vss, labs unremarkable. Physical exam notable for severe expiratory wheezing, started on steroid, scheduled bronchodilator. Objective Vital Signs Date Time Temp Pulse Resp B/P (MAP) Pulse Ox O2 Delivery O2 Flow Rate FiO2 07/03/24 07:48 88 07/03/24 06:00 97.6 22 141/92 (108) 93 Room Air 07/03/24 01:58 0.0 07/03/24 01:49 21 Result Diagram: 07/03/24 0611 07/03/24 0611 Physical Exam General: Generalized weakness, A&Ox 3, NAD HEENT: Normocephalic, PERRLA Neck: Supple, trachea midline, no JVD Chest: Expiratory wheezing b/l lungs Cardiovascular: RRR, S1&S2 GI: Soft and nontender Extremities: No cyanosis/clubbing/or edema ENAMEL PULVERIZER: CN II-XII intact, no focal deficits Musculoskeletal: No paraspinal muscle tenderness, no muscle spasm Skin: Warm and intact Coagulation Studies Laboratory Tests Test 07/02/24 16:04 D-Dimer 0.56 MG/L FEU (0-0.50) H D-Dimer Comment Problem\Assessment\Plan # Suspected infective bronchitis, 3 weeks # Acute COPD exacerbation # SIRS # Type II IL 2/2 SIRS -CXR, UA, CTA chest negative -start empirical abx given comorbidities, IVF, supportive care, follow respiratory culture -steroid, bronchodilator # Acute decompensated systolic heart failure, LVEF 35-40% (03/01/24) # Methamphetamine-induced cardiomyopathy # Methamphetamine abuse # Hypertension -EKG sinus tachycardia at 114bpm, no ischemic changes, elevated d-dimer; CTA negative PE unremarkable, CXR negative, downtrending troponins; UDS positive amphetamine -GDMT including metoprolol tart -follow TTE, venous US b/l LE -07/03: venous US BLE negative, follow TTE # Tobacco abuse # Nicotine dependence -nicotine patch # Class II obesity # HLD -follow lipid panel, pending med rec DVT/VTE Prophylaxis: heparin Code Status: DNR/DNI Date of Service: July 03, 2024 Billing Provider: AISHA DHALIWAL Common Visit Codes: [id number] INP/OBS CARE(HIGH) AISHA DHALIWAL July 03, 2024 12:05
[2024-07-03] MEDS: methylPREDNISolone sod succ/PF 40mg inj. IV SCH (19:52)
[2024-07-04 02:00] VITALS: BP 118/61; PULSE 89; RESP 18; TEMP 98.2; O2SAT 94
[2024-07-04 06:00] VITALS: BP 150/88; PULSE 88; RESP 16; TEMP 98.7; O2SAT 96
[2024-07-04 06:37] LABS: BASOPHILS % (AUTO) 0.2 % (0-1); EOSINOPHILS % (AUTO) 0 % (0-6); LYMPHOCYTES # (AUTO) 0.8 X10'3 (1.1-4.8); LYMPHOCYTES % (AUTO) 9.1 % (21-51); MEAN CORPUSCULAR HEMOGLOBIN 29.4 PG (27.0-31.0); MEAN CORPUSCULAR HGB CONC 34.3 g/dL (33.0-36.5); MEAN CORPUSCULAR VOLUME 85.7 FL (78-98); MEAN PLATELET VOLUME 8.6 FL (7.4-10.4); MONOCYTES # (AUTO) 0.3 X10'3 (0-0.9); MONOCYTES % (AUTO) 3.9 % (2-12); NEUTROPHILS # (AUTO) 7.9 X10'3 (1.8-7.7); NEUTROPHILS % (AUTO) 86.8 % (42-75); PLATELET COUNT 194 X10'3 (140-440); RED BLOOD COUNT 4.44 X10'6 (4.20-5.60); RED CELL DISTRIBUTION WIDTH 13.5 % (11.5-14.5); WHITE BLOOD COUNT 9.1 X10'3 (4.5-11.0)
[2024-07-04 06:56] LABS: ALANINE AMINOTRANSFERASE 19 U/L (12-78); ALBUMIN 3.1 G/DL (3.4-5.0); ALBUMIN/GLOBULIN RATIO 0.9 (1.1-1.5); ALKALINE PHOSPHATASE 85 IU/L (46-116); ANION GAP 8 (8-16); ASPARTATE AMINO TRANSFERASE 13 U/L (10-37); BILIRUBIN,TOTAL 0.2 MG/DL (0.1-1.0); BLOOD UREA NITROGEN 13 MG/DL (7-18); CALCIUM 8.5 MG/DL (8.5-10.1); CHLORIDE 108 MMOL/L (99-107); CREATININE 0.62 MG/DL (0.40-0.90); GLUCOSE 139 MG/DL (70-104); MAGNESIUM 2.2 MG/DL (1.5-2.4); POTASSIUM 4.1 MMOL/L (3.5-5.1); SODIUM 141 MMOL/L (135-145); TOTAL CARBON DIOXIDE 25.1 MMOL/L (24-32); TOTAL PROTEIN 6.7 G/DL (6.4-8.2); eCRCL 95 ML/MIN; eGFR > 90 ML/MIN
[2024-07-04 08:00] VITALS: RESP 18; O2SAT 96
[2024-07-04] MEDS: metoprolol tartrate 25mg tablet PO SCH (08:11)
[2024-07-04 08:43] VITALS: PULSE 92; RESP 16; O2SAT 95
[2024-07-04 08:52] VITALS: PULSE 84; RESP 20
[2024-07-04] MEDS ORDERED: AMOX-117 PO (09:19)
[2024-07-04] MEDS ORDERED: EMPA10TA PO ×2 (09:19→11:34)
[2024-07-04] MEDS ORDERED: FLUT1DIS4 INH ×2 (09:19→11:34)
[2024-07-04] MEDS ORDERED: LOP25T PO ×2 (09:19→11:34)
[2024-07-04] MEDS ORDERED: LOSA25TA41 PO ×3 (09:19→11:34)
[2024-07-04] MEDS ORDERED: PRED10TA23 PO ×2 (09:19→11:34)
--- NOTE | 2024-07-04 09:54 | CARDIOLOGY REPORT ---
APPROVED REPORT EXAM: Comprehensive 2D, Doppler, and color-flow Echocardiogram. 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 165.5 cm/s AoV VTI 29.1 cm AO Peak GR. 11.0 mmHg AO Mean GR. 6 mmHg LVOT VTI 27.13 cm LVOT Peak Toni. 122.6 cm/s SHARLENE(VTI)/BSA 3.52 cm2/m2 SHARLENE (VTI) 3.52 cm2 Mitral Valve MV E Velocity 47.7 cm/s MV Peak Gr. 8 mmHg MV DECEL TIME 120 ms MV A Velocity 108.5 cm/s MV Mean Gr. 2 mmHg E/A Ratio 0.4 MV VVzx592.1 cm/sMV VMean66.7 cm/s MVA VTI3.85 cm2MV VTI26.7 cm TDI Medial E' P. V 7.41 cm/s E/Medial E' 6.4 Tricuspid Valve TR P. Velocity 191 cm/s RAP ESTIMATE 10 mmHg TR Peak Gr. 15 mmHg RVSP 25 mmHg Pulmonary Vein S1 Velocity 40.6 cm/s D2 Velocity 49.2 cm/s PVa Rxwvqkhe64.9 cm/s PVa [id number] msec LEFT VENTRICLE The LV is dilated in size with moderately reduced function. Mild concentric hypertrophy. Overall LVEF appears to be 35-40%. RIGHT VENTRICLE Right ventricle is moderately dilated with reduce function. Estimated PA systolic pressure is 25 mmHg . ATRIA Left atrium is moderately dilated. Right atrium is mildly dilated. AORTIC VALVE Trileaflet AV appears sclerotic without stenosis. Trace insufficiency. MITRAL VALVE Mild MV annular calcification without stenosis. Moderate regurgitation. TRICUSPID VALVE TV appears structurally normal with trace regurgitation. PULMONIC VALVE Normal PV without stenosis, physiologic insufficiency. GREAT VESSELS The aortic root is normal in size. IVC is normal in size and collapses less than 50% with inspiration . PERICARDIUM Normal pericardium. No pericardial effusion seen. Other Information Study Quality: Fair Conclusion The LV is dilated in size with moderately reduced function. Mild concentric hypertrophy. Overall LV EF appears to be 35-40%. Right ventricle is moderately dilated with reduce function. Estimated PA systolic pressure is 25 mmHg . Left atrium is moderately dilated. Right atrium is mildly dilated. Trileaflet AV appears sclerotic without stenosis. Trace insufficiency. Mild MV annular calcification without stenosis. Moderate regurgitation. TV appears structurally normal with trace regurgitation. Normal pericardium. No pericardial effusion seen.
[2024-07-04 11:00] VITALS: BP 136/84; PULSE 81; RESP 24; TEMP 98.5; O2SAT 96
[2024-07-04] MEDS ORDERED: METO50TA16 PO (11:34)
[2024-07-04] MEDS ORDERED: ALBU18HF2 INH (11:34)
[2024-07-04] MEDS ORDERED: AMOX-419 PO (11:34)
--- NOTE | 2024-07-04 11:50 | DISCHARGE SUMMARY ---
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 Hypertension Hypokalemia Tobacco abuse Nicotine dependence Class II obesity HLD Operations\Procedures: None Consultants: None Complications: None Condition on DC: Stable New Medications: Albuterol Sulfate (Ventolin Hfa) 90 Mcg Hfa.aer.ad 2 PUFFS INH Q4HPRN PRN for SOB or wheezing for 30 Days, #18 GM 0 Refills Amoxicillin/Potassium Clav (Augmentin 500-125 Tablet) 500 Mg-125 Mg Tablet 1 TAB PO Q8H for 5 Days, #15 TAB Empagliflozin (Jardiance) 10 Mg Tablet 1 TAB PO DAILY for 30 Days, #30 TAB 0 Refills Fluticasone/Salmeterol (Advair 250-50 Diskus) 1 Each Disk.w.dev 1 PUFFS INH Q12H for 30 Days, #1 EA 0 Refills Losartan Potassium (Losartan Potassium) 25 Mg Tablet 1 TAB PO DAILY for 30 Days, #30 TAB 0 Refills Metoprolol Tartrate (Metoprolol Tartrate) 50 Mg Tablet 1 TAB PO Q12H for 30 Days, #60 TAB Prednisone (Prednisone) 10 Mg Tablet 0 PO DAILY, #42 TAB Take 4 tabs daily x4 days, then 3 daily x4 days 2 daily x4 days 1 daily x4 days 1/2 daily x4 days then STOP Losartan Potassium (Losartan Potassium) 25 Mg Tablet 25 MG PO DAILY for 30 Days, #30 TAB Metoprolol Tartrate* (Lopressor tablet*) 25 Mg Tablet 50 MG PO Q12H for 30 Days, #60 TAB Hold for SBP below 100mm Hg Hold for Heart Rate below 60. Continued Medications: Albuterol Sulfate (Ventolin Hfa) 18 Gm Hfa.aer.ad 1 PUFFS INH every 4 to 6 hours PRN for SOB or wheezing Atorvastatin Calcium (Atorvastatin Calcium) 10 Mg Tablet 1 TAB PO DAILY for 30 Days, #30 TAB 0 Refills Spironolactone (Spironolactone) 25 Mg Tablet 1 TAB PO DAILY for 30 Days, #30 TAB 0 Refills Discontinued Medications: Carvedilol (Coreg) 6.25 Mg Tablet 1 TAB PO Q12H for 30 Days, #60 TAB Lisinopril (Lisinopril) 20 Mg Tablet 1 TAB PO DAILY for 30 Days, #30 TAB Discharge Summary: History of Present Illness Alisson Harmon is a 58-year-old female with a past medical history of systolic heart failure, methamphetamine abuse, methamphetamine-induced cardiomyopathy, medication noncompliance, chronic tobacco abuse, COPD who presented to the ED with chief complaint of progressively worsening shortness of breath with associated symptoms of persistent productive cough, pleuritic chest pain with excessive coughing, intermittent fever and chills x 3 weeks. Patient denies prior LA/CAD, CVA, cardiac arrhythmia, DVT/PE, or GIB. Patient denies palpitations, abdominal pain, n/v/d. Patient is to be admitted for further workups and treatment. Hospital Course Diagnostic findings were notable for hypoxia requiring supplemental oxygen, slightly elevated but downtrending troponin series, sinus tachycardia, tachypnea, elevated D-dimer with negative venous ultrasound of bilateral lower extremities and CTA chest negative for pulmonary embolism, physical exam si gnificant for severe expiratory wheezing in bilateral lobes of lungs. TTE showed systolic dysfunction with LVEF of 35-40% with moderate mitral regurgitation. Pertinent negative findings were pBNP at 300s, negative chest x-ray, negative CTA chest, no leukocytosis, afebrile, normal lactic acid, negative procal. Patient was treated with empirical antibiotics, steroid, bronchodilators, GDMT for heart failure. With treatment, reported pleuritic chest pain resolved completely and work of breathing improved significantly. Objective findings of expiratory wheezing improved significantly. Patient did not experience further complications throughout the entire hospital stay and made a good recovery. Patient ambulates independently. Patient was seen and examined on the day of discharge. On day of discharge, vss and labs unremarkable. Preliminary respiratory and blood culture remains negative until the day of discharge. All labs, diagnostic workups, discharge plan discussed with patient in details during visit before discharge. All questions and concerns answered to the best of my professional knowledge. Patient is to be discharged to home to self and to follow-up with PCP within 2 weeks. Physical Exam General: A&Ox 3, NAD HEENT: Normocephalic, PERRLA Neck: Supple, trachea midline, no JVD Chest: Clear to auscultation bilaterally Cardiovascular: RRR, S1&S2 GI: Soft and nontender Extremities: No cyanosis/clubbing/or edema MANAGEMENT COORDINATOR: CN II-XII intact, no focal deficits Musculoskeletal: No paraspinal muscle tenderness, no muscle spasm Skin: Warm and intact *Problems/Diagnosis: (1) Acute respiratory infection Status: Acute Total Time Spent on D/C: > 30 Minutes Date of Service: July 04, 2024 Billing Provider: AISHA DHALIWAL Common Visit Codes: 27926-PAE/OBS DISCH DAY >30min AISHA DHALIWAL July 04, 2024 11:44
== END 2024-07-04 12:50 | disposition home or self-care (01) | DRG 140 ==
LOC: ER 15:51 → ED HOLD 17:31 → PCU 3S 22:56
PROVIDERS: ADMIT Nurse Practitioner Family; ATTEND Nurse Practitioner Family
PROC: B32T1ZZ Computerized Tomography (CT Scan) of Left Pulmonary Artery using Low Osmolar Contrast (ICD-10-PCS; principal; 2024-07-02)
PROC: B32S1ZZ Computerized Tomography (CT Scan) of Right Pulmonary Artery using Low Osmolar Contrast (ICD-10-PCS; 2024-07-02)
PROC: B3201ZZ Computerized Tomography (CT Scan) of Thoracic Aorta using Low Osmolar Contrast (ICD-10-PCS; 2024-07-02)
DX: J44.1 Chronic obstructive pulmonary disease with (acute) exacerbation (principal); I21.A1 Myocardial infarction type 2; I11.0 Hypertensive heart disease with heart failure; I42.7 Cardiomyopathy due to drug and external agent; R65.10 Systemic inflammatory response syndrome (SIRS) of non-infectious origin without acute organ dysfunction; I50.22 Chronic systolic (congestive) heart failure; Z66 Do not resuscitate; J44.0 Chronic obstructive pulmonary disease with (acute) lower respiratory infection; J40 Bronchitis, not specified as acute or chronic; E78.5 Hyperlipidemia, unspecified; F15.10 Other stimulant abuse, uncomplicated; F17.210 Nicotine dependence, cigarettes, uncomplicated; I34.0 Nonrheumatic mitral (valve) insufficiency; B19.20 Unspecified viral hepatitis C without hepatic coma; E66.812 Obesity, class 2; E87.6 Hypokalemia; Z59.00 Homelessness unspecified; Z79.51 Long term (current) use of inhaled steroids; Z79.84 Long term (current) use of oral hypoglycemic drugs; Z79.899 Other long term (current) drug therapy; Z91.148 Patient's other noncompliance with medication regimen for other reason; Z98.51 Tubal ligation status; Z88.8 Allergy status to other drugs, medicaments and biological substances; Z68.35 Body mass index [BMI] 35.0-35.9, adult
CPT/HCPCS: 36415; 71045; 71275; 80053; 80061; 80305; 81003; 83605; 83735; 83880; 84145; 84484; 85025; 85379; 87040; 87070; 87081; 93005; 93306; 93970; 94640; 94760; 96365; 96368; 96375; 97116; 97161; 97530; 99285; G0378; J0456; J0696; J1644; J1938; J2919; J3490; J7030; J7040; Q9967